=== PATIENT | female | born 1945 | race Caucasian/White ===

== ENCOUNTER 2023-01-15 07:37 | Outpatient (CLI) | payer MEDICARE, BC, SELFPAY | END 2023-01-15 07:38 | disposition home or self-care (01) | LOC: MRI 07:42 | PROVIDERS: Visit Provider Radiology Radiation Oncology | DX: C79.31 Secondary malignant neoplasm of brain (principal) | CPT/HCPCS: 70553; 99211; A9575; J1642 ==

== ENCOUNTER 2023-01-15 08:04 | Outpatient (RCR) | payer MEDICARE, BC, SELFPAY ==
[2023-01-15] MEDS: SODIUM CHLORIDE 0.9 % (FLUSH) 10 ML SYRINGE IVF ×2 (08:27→10:42)
[2023-01-15] MEDS: HEPARIN 500 UNIT/5 ML SYRINGE IVF (10:42)
== END 2023-07-14 23:59 | disposition home or self-care (01) ==
LOC: CCIC 08:04
PROVIDERS: Visit Provider Radiology Radiation Oncology
DX: C79.31 Secondary malignant neoplasm of brain (principal)
CPT/HCPCS: 99211; J1642